=== PATIENT | male | born 1955 ===

== ENCOUNTER 2016-08-13 09:36 | Emergency (ER) | payer OTHER ==
[2016-08-13 09:47] VITALS: BP 155/93
--- NOTE | 2016-08-13 11:51 | UC ---
I, Oh,Soohpelon, scribed for Andres Oliva MD on 08/13/16 at 1025 . Skin Complaint HPI - HPI Summary HPI Summary: This 60 y/o male presents to [facility] for diffuse rash and swelling over face and bilat hands since 5 days ago. Itchiness all over face. Pt initially dismissed the reaction as due to exposure to grease spray while tending to tsang a day before the onset. Pt denies any possible exposure from food, perfume, poison magda , or any other exposure. Negative SOB, chest tightness, or throat tightening. Pt denies any hx of similar allergic reaction. - History of Current Complaint Chief Complaint: UCSkin Time Seen by Provider: 08/13/16 10:14 Stated Complaint: RASH Hx Obtained From: Patient Onset/Duration: Lasting Days, Still Present Location: Face, Hand (Right), Hand (Left) Character: Redness Aggravating: Nothing Alleviating: Nothing Associated Signs & Symptoms: Positive: Rash. Negative: Difficulty Breathing, Fever - Allergy/Home Medications Allergies/Adverse Reactions: Allergies Allergy/AdvReac Type Severity Reaction Status Date / Time No Known Allergies Allergy Verified 08/13/16 09:41 Home Medications: Home Medications Cephalexin CAP* [Keflex 500 CAP*] 500 mg PO QID 08/13/16 [History Confirmed ] Finasteride TAB* [Proscar TAB*] 5 mg PO DAILY 08/13/16 [History Confirmed ] Review of Systems Constitutional: Negative Skin: Other - Itchiness across bilat hands and face. Redness across face Eyes: Negative ENT: Negative Respiratory: Negative Cardiovascular: Negative Gastrointestinal: Negative Genitourinary: Negative Motor: Negative Neurovascular: Negative Musculoskeletal: Negative Neurological: Negative Psychological: Negative All Other Systems Reviewed And Are Negative: Yes PMH/Surg Hx/FS Hx/Imm Hx - Additional Past Medical History Additional PMH: Knee surgery - Surgical History Surgical History: Yes Surgery Procedure, Year, and Place: knee surgery - Family History Known Family History: Negative: Other - colon CA or polyps - Social History Alcohol Use: Rare Substance Use Type: None Smoking Status (MU): Former Smoker Type: Cigarettes When Did the Patient Quit Smoking/Using Tobacco: 21 years ago Physical Exam Triage Information Reviewed: Yes Vital Signs: Initial Vital Signs Temp 98.5 F 08/13/16 09:43 Pulse 60 08/13/16 09:43 Resp 16 08/13/16 09:43 BP 155/93 08/13/16 09:43 Pulse Ox 95 08/13/16 09:43 Vital Signs Reviewed: Yes - Additional Comments The patient is well-nourished in no acute distress and in no acute pain. The skin is warm and dry and skin color reflects adequate perfusion. Periorbital edema. Fluid around the eyes. Macular vescicular rash on RUE antecubital fossa. Redness diffuse all over face. HEENT: The head is normocephalic and atraumatic. The pupils are equal and reactive. The conjunctivae are clear and without drainage. Nares are patent and without drainage. Mouth reveals moist mucous membranes and the throat is without erythema and exudate. The external ears are intact. The ear canals are patent and without drainage. The tympanic membranes are intact. Neck is supple with full range of motion and non-tender. There are no carotid bruits. There is no neck vein distension. Respiratory: Chest is non-tender. Lungs are clear to auscultation and breath sounds are symmetrical and equal. Cardiovascular: Hear is regular rate and rhythm. There is no murmur or rub auscultated. There is no peripheral edema and pulses are symmetrical and equal. Neurological: Patient is alert and oriented to person, place and time. Psychiatric: The patient has an appropriate affect and does not exhibit any anxiety or depression. Course/Dx - Differential Diagnoses - Skin Complaint Differential Diagnoses: Drug Rash, Local Allergic Reaction, Medication; Adverse Reaction, Poison Magda, Poison [place] - Diagnoses Provider Diagnoses: 1) general allergic reaction Discharge - Discharge Plan Condition: Stable Disposition: HOME Prescriptions: diPHENhydraMINE PO* [Benadryl PO 50 MG CAP*] 50 mg PO Q6H PRN #30 cap PRN Reason: itching predniSONE TAB* [Deltasone TAB*] 60 mg PO DAILY #15 tab Patient Education Materials: Prednisone (By mouth), Diphenhydramine (By mouth) , General Allergic Reaction (ED) Referrals: Elicia Delgado [Nurse Practitioner] - 2 Days The documentation as recorded by the Merrick medina Soohyun accurately reflects the service I personally performed and the decisions made by , Andres Oliva MD.
== END 2016-08-13 10:38 | disposition home or self-care (01) ==
LOC: UCEAST 09:36
DX: Z87.891 Personal history of nicotine dependence (principal); T78.40XA Allergy, unspecified, initial encounter
CPT/HCPCS: 99202; G0463